=== PATIENT | female | born 1980 | race Caucasian/White ===

== ENCOUNTER 2016-12-31 22:40 | Emergency (ER) | payer SELFPAY ==
[~2016-12-31] VITALS: Ht 165.1 cm; Wt 61.2 kg
[2016-12-31 22:45] VITALS: BP 134/89
[2016-12-31] MEDS ORDERED: ACET-704 PO (23:01)
[2016-12-31] MEDS ORDERED: AMOX875T PO (23:01)
--- NOTE | 2016-12-31 23:01 | PHYS DOC ---
Adult General Chief Complaint Chief Complaint: DENTAL PROBLEM HPI HPI Patient is a 36 year old female who presents with left lower gum dental pain that began days ago. Patient states she has seen her dentist over this pain and they told her she needs her wisdom tooth removed. Patient states the tooth is touching her gum and she has to have special surgery to have it removed. Patient denies any fever or trismus. Review of Systems Review of Systems Constitutional: Denies fever or chills [] HENT: left lower gum dental pain Musculoskeletal: Denies back pain or joint pain [] Integument: Denies rash or skin lesions [] Physical Exam Physical Exam Constitutional: Well developed, well nourished, no acute distress, non-toxic appearance. [] HENT: Normocephalic, atraumatic, bilateral external ears normal, oropharynx moist, no oral exudates, nose normal. [] Left lower wisdom tooth is grown but there is no room for it to keep growing. No gum redness. Skin: Warm, dry, no erythema, no rash. [] Back: No tenderness, no CVA tenderness. [] Extremities: No tenderness, no cyanosis, no clubbing, ROM intact, no edema. [] Neurologic: Alert and oriented X 3, normal motor function, normal sensory function, no focal deficits noted. [] Psychologic: Affect normal, judgement normal, mood normal. [] Current Patient Data Vital Signs Vital Signs Date Time Temp Pulse Resp B/P (MAP) Pulse Ox O2 Delivery O2 Flow Rate FiO2 12/31/16 22:45 98.5 79 18 99 Room Air 98.5 EKG EKG [] Radiology/Procedures Radiology/Procedures [] Course & Med Decision Making Course & Med Decision Making Pertinent Labs and Imaging studies reviewed. (See chart for details) Patient is in the ED with left lower wisdom tooth pain. She requested something for pain stating she cannot take tramadol. Rx for Tylenol 3. Informed consent her home with antibiotics as well. Informed that she can see her dentist if she wants something stronger. Dragon Disclaimer Dragon Disclaimer This electronic medical record was generated, in whole or in part, using a voice recognition dictation system. Departure Departure Impression: Primary Impression: Dentalgia Disposition: HOME, SELF-CARE Condition: STABLE Patient Instructions: Dental Pain, [id number] Additional Instructions: You were seen with dental pain. Follow-up with your dentist as soon as possible. Scripts Amoxicillin (AMOXICILLIN) 875 Mg Tablet 1 TAB PO BID, #20 TAB Prov: KASHMIR ERWIN APRN 12/31/16 Acetaminophen With Codeine (TYLENOL WITH CODEINE #3 TABLET) 1 Each Tablet 1 TAB PO PRN Q6HRS Y for PAIN, #20 TAB MUST FILL AMOXICILLIN PRIOR TO PAIN MEDICINE. DO NOT FILL IF SHE HAS FILLED ANY NARCOTICS IN THE LAST SEVEN DAYS. CAN NOT FILL PAST 01/01/2017 Prov: KASHMIR ERWIN APRN 12/31/16 KASHMIR ERWIN APRN Dec 31, 2016 23:01
== END 2016-12-31 23:05 | disposition home or self-care (01) ==
LOC: ER 22:40
DX: K08.89 Other specified disorders of teeth and supporting structures (principal)
CPT/HCPCS: 99283